=== PATIENT | male | born 2000 | race Two or more races ===

== ENCOUNTER 2019-05-05 11:31 | Emergency (ER) | payer OTHER ==
[~2019-05-05] VITALS: Ht 175.3 cm; Wt 102.1 kg
[2019-05-05 11:33] VITALS: BP 112/60
[2019-05-05] MEDS ORDERED: cefTRIAXone SOD 1,000 MG VL IM ONE (12:00)
[2019-05-05] MEDS ORDERED: methylPREDNISolone SOD SUCC 125 MG/2 ML VL IM ONE (12:00)
== END 2019-05-05 12:40 | disposition home or self-care (01) ==
LOC: ER 11:31
DX: J03.90 Acute tonsillitis, unspecified (principal)
CPT/HCPCS: 96372; 99284; J0696; J2930